=== PATIENT | male | born 1985 | race African-American/Black ===

== ENCOUNTER 2020-01-03 09:53 | Emergency (ER) | payer SELFPAY ==
[2020-01-03 09:55] VITALS: BP 210/141
== END 2020-01-03 13:05 | disposition left against medical advice (07) ==
LOC: ED 09:53
DX: F20.9 Schizophrenia, unspecified (principal); I10 Essential (primary) hypertension; F43.10 Post-traumatic stress disorder, unspecified; F17.210 Nicotine dependence, cigarettes, uncomplicated